=== PATIENT | female | born 1970 | race African-American/Black ===

== ENCOUNTER 2019-08-20 04:28 | Emergency (ER) | payer OTHER ==
[~2019-08-20] VITALS: Ht 165.1 cm; Wt 60.8 kg
--- NOTE | 2019-08-20 04:35 | NUR ---
PATIENT CAME TO ER BED 9 C/O NON-RADIATING MIDSTERNAL CHEST PAIN WITH PRESSURE LIKE SYMPTOMS 12/05 SINCE YESTERDAY. PATIENT STATES THAT SHE HAD THIS PAIN 2 DAYS AGO. PATIENT IS AAOX4. NO SOB. BREATHING EVENLY AND UNLABORED ON ROOM AIR. CONNECTED TO [employer]KER.
--- NOTE | 2019-08-20 04:39 | NUR ---
BLOOD DRAWN AND SENT TO LAB
--- NOTE | 2019-08-20 04:43 | NUR ---
XRAY AT BEDSIDE
[2019-08-20 04:53] LABS: BASOPHILS % (AUTO) 0.9 % (0.0-2.0); EOSINOPHILS % (AUTO) 1.3 % (0.0-6.0); HEMATOCRIT 42 % (33-45); HEMOGLOBIN 13.9 g/dL (11.5-14.8); LYMPHOCYTES # (AUTO) 2.8 /CMM (0.8-4.8); LYMPHOCYTES % (AUTO) 49.6 % (20.0-44.0); MEAN CORPUSCULAR HGB CONC 33 g/dl (31.0-36.0); MEAN CORPUSCULAR VOLUME 92 fL (82-100); MONOCYTES # (AUTO) 0.6 /CMM (0.1-1.30); MONOCYTES % (AUTO) 10.6 % (2.0-12.0); NEUTROPHILS # (AUTO) 2.1 /CMM (1.8-8.9); NEUTROPHILS % (AUTO) 37.6 % (43.0-81.0); PLATELET COUNT (AUTO) 294 /CMM (150-450); WHITE BLOOD COUNT (AUTO) 5.6 K/uL (4.3-11.0)
[2019-08-20 04:59] LABS: CALCIUM, SERUM 8.7 mg/dL (8.5-10.1); CARBON DIOXIDE 31 mmol/L (21-32); CHLORIDE 103 mmol/L (98-107); CREATININE 0.9 mg/dL (0.6-1.3); GLUCOSE 92 mg/dL (74-106); POTASSIUM 3.4 mmol/L (3.5-5.1); SODIUM SERUM 138 mmol/L (136-145); UREA NITROGEN, BLOOD 18 mg/dL (7-18)
--- NOTE | 2019-08-20 07:19 | NUR ---
REPORT GIVEN TO CAMPOS STEVENS FOR [facility].
--- NOTE | 2019-08-20 08:26 | NUR ---
patient a/o4, breathing even and unlabored, denies pain at this time.
--- NOTE | 2019-08-20 09:02 | NUR ---
Ambulatory with steady gait. IV removed. Catheter intact and site benign. Pressure and 4x4 applied to site. No bleeding noted.Patient discharged to home in stable condition. Written and verbal after care instructions given. Patient verbalizes understanding of instruction.
[2019-08-20 09:03] VITALS: BP 132/66
== END 2019-08-20 09:03 | disposition home or self-care (01) ==
LOC: ER 04:32
DX: R07.89 Other chest pain (principal); E78.5 Hyperlipidemia, unspecified
CPT/HCPCS: 36415; 71045-TC; 80048-TC; 84484-TC; 85025-TC